=== PATIENT | female | born 1945 | race Caucasian/White ===

== ENCOUNTER → 2016-10-24 | Outpatient (CLI) | payer OTHER, MEDICARE ==
[~2016-10-24] MED LIST: ASPIRIN EC325 M1 PO; CO Q-1010 MG PO; FISH OIL 1,2001 EAC4 PO; VITAMIN B-650 M1 PO; ZOLOFT25 MG PO
== END ==
LOC: RAD 09-29 01:03
DX: Z12.31 Encounter for screening mammogram for malignant neoplasm of breast (principal)

== ENCOUNTER → 2017-11-14 | Outpatient (CLI) | payer OTHER, MEDICARE | LOC: BC 01:08 | DX: Z12.31 Encounter for screening mammogram for malignant neoplasm of breast (principal) ==

== ENCOUNTER → 2018-11-15 | Outpatient (CLI) | payer OTHER, MEDICARE | LOC: RAD 11:36 | DX: Z12.31 Encounter for screening mammogram for malignant neoplasm of breast (principal) ==

== ENCOUNTER → 2019-12-17 | Outpatient (CLI) | payer OTHER, MEDICARE | LOC: RAD 10:30 | DX: Z12.31 Encounter for screening mammogram for malignant neoplasm of breast (principal) ==

== ENCOUNTER → 2021-03-16 | Outpatient (CLI) | payer OTHER, MEDICARE | LOC: BC 10:02 | PROVIDERS: ATTEND Nurse Practitioner | DX: Z12.31 Encounter for screening mammogram for malignant neoplasm of breast (principal); N64.89 Other specified disorders of breast ==